=== PATIENT | female | born 1985 | race Two or more races ===

== ENCOUNTER 2017-04-20 13:25 | Inpatient (IN) | payer MEDICAID ==
[~2017-04-20] VITALS: Ht 157.5 cm; Wt 82.6 kg
[~2017-04-20 13:25] MED LIST: PREN-96 PO
[2017-04-20] MEDS ORDERED: BETAMETHASONE ACET (6MG/ML) 5ML VIAL ONE (13:35)
[2017-04-20] MEDS ORDERED: IRON150T2 PO (13:50)
[2017-04-20] MEDS ORDERED: NALBUPHINE HCL 10 MG/1ml INJECTION IV PRN (14:30)
[2017-04-20] MEDS ORDERED: LACTATED RINGER'S 1,000 ML IV SCH (14:30)
[2017-04-20] MEDS ORDERED: LIDOCAINE 1% HCL (LOCAL ANESTH.) INJ 20ML MDV XX ONE (14:30)
[2017-04-20] MEDS ORDERED: PROMETHAZINE HCL 25 MG/ML 1ML IV PRN (14:30)
[2017-04-20 15:21] LABS: Basophils # (auto) 0 uL; Basophils % (auto) 0.1 % (0.0-2.0); CONDITION Y; Eosinophils # (auto) 0 uL; Eosinophils % (auto) 0.1 % (0.0-7.0); Hemoglobin 10.4 g/dL (12.2-16.2); Lymphocytes # (auto) 1.5 uL; Lymphocytes % (auto) 12.4 % (10.0-50.0); Mean Corpuscular Hemoglobin 28.1 pg (28.0-32.0); Mean Corpuscular Hgb Conc. 33.7 g/dL (32.0-36.0); Mean Corpuscular Volume 83.3 fL (80.0-100.0); Mean Platelet Volume 7.7 fL (7.4-10.4); Monocytes # (auto) 0.7 uL; Monocytes % (auto) 5.5 % (0.0-12.0); Neutrophils # (auto) 9.8 uL; Neutrophils % (auto) 81.9 % (37.0-80.0); Platelet Count (auto) 372 10^3/uL (140-450); Red Cell Distribution Width 15.4 % (11.6-16.0)
[2017-04-20 15:31] LABS: INR 0.91 (0.9-1.15); Prothrombin Time 9.9 sec (9.37-12.3)
[2017-04-20 15:38] LABS: Urine Bilirubin Negative (Negative); Urine Blood Negative /uL (Negative); Urine Glucose Normal (Normal); Urine Ketone Negative (Negative); Urine Nitrite Negative (Negative); Urine RBC 2 /hpf (0 - 4); Urine Squamous Epithelial Cell FEW /hpf (<5); Urine Urobilinogen Normal (Negative)
[2017-04-20 15:41] LABS: Albumin 2.7 g/dL (3.4-5.0); BUN/Creatinine Ratio 11.9; Calcium 8.5 mg/dL (8.5-10.1); Potassium 3.3 mmol/L (3.5-5.1)
[2017-04-20 15:43] LABS: Urine Color Straw (Yellow)
[2017-04-20 15:54] LABS: Uric Acid 4.6 mg/dL (2.6-6.0)
[2017-04-20 16:05] LABS: Bilirubin, Total 0.1 mg/dL (0.2-1.0); Total Protein 6.9 g/dL (6.4-8.2)
[2017-04-21] VITALS: BP 109/56
[2017-04-21] MEDS ORDERED: LACTATED RINGER'S 1,000 ML IV SCH (05:52)
[2017-04-21] MEDS ORDERED: LACT. RINGERS/OXYTOCIN 20UNITS 1,000 ML IV SCH (05:52)
[2017-04-21] MEDS ORDERED: PHISODERM TOP SOLN 240ML BTL TOP PRN (06:00)
[2017-04-21] MEDS ORDERED: LIDOCAINE 2%HCL (LOCAL ANESTH.) INJ 20ML MDV IJ ONE (06:00)
[2017-04-21] MEDS ORDERED: DERMOPLAST 60ML BOTTLE TOP PRN (06:00)
[2017-04-21] MEDS ORDERED: WITCH HAZEL-GLYCERIN PAD TOP PRN (06:00)
[2017-04-21] MEDS ORDERED: METHYLERGONOVINE MALEATE 0.2 MG/ML AMP IM PRN (06:00)
[2017-04-21] MEDS: DOCUSATE CALCIUM 240 MG CAP PO SCH (18:44)
[2017-04-21] MEDS ORDERED: IBUPROFEN 600 MG TAB PO PRN (18:45)
[2017-04-22 04:00] VITALS: BP 94/53
[2017-04-22 06:30] VITALS: BP 109/61
[2017-04-22] MEDS: DOCUSATE CALCIUM 240 MG CAP PO SCH (10:00)
[2017-04-22 11:45] VITALS: BP 106/66
[2017-04-22 16:00] VITALS: BP 116/75
[2017-04-22 18:45] VITALS: BP 138/87
[2017-04-22 23:30] VITALS: BP 111/68
[2017-04-23 03:30] VITALS: BP 114/59
[2017-04-23 07:30] VITALS: BP 114/75
[2017-04-23] MEDS: DOCUSATE CALCIUM 240 MG CAP PO SCH (10:13)
[2017-04-23 12:30] VITALS: BP 109/67
== END 2017-04-23 16:05 | disposition home or self-care (01) | DRG 560 ==
LOC: OBSVTOIN 13:25 → LDRP 13:25
PROVIDERS: ADMIT Specialist; ATTEND Specialist
PROC: 10E0XZZ Delivery of Products of Conception, External Approach (ICD-10-PCS; principal; 2017-04-21)
DX: O41.00X0 Oligohydramnios, unspecified trimester, not applicable or unspecified (principal); O36.5930 Maternal care for other known or suspected poor fetal growth, third trimester, not applicable or unspecified; Z37.0 Single live birth; Z3A.37 37 weeks gestation of pregnancy
CPT/HCPCS: 36415; 59025; 59409; 76815; 76818; 76856; 80053; 81001; 81002; 84550; 85025; 85610; 85730; 86850; 86900; 86901; 96361; 96366; 96372; 96375; G0378; J2590

== ENCOUNTER 2021-01-23 14:42 | Emergency (ER) | payer SELFPAY ==
[~2021-01-23] VITALS: Ht 157.5 cm; Wt 74.8 kg
[~2021-01-23 14:42] MED LIST changes: +IRON150T2 PO
[2021-01-23] MEDS ORDERED: IBUPROFEN 800 MG TAB PO ONE (17:45)
[2021-01-23] MEDS ORDERED: METHOCARBAMOL 500 MG TAB PO ONE (17:45)
[2021-01-23 19:50] VITALS: BP 120/72
== END 2021-01-23 19:58 | disposition home or self-care (01) ==
LOC: ER 14:42
DX: S16.1XXA Strain of muscle, fascia and tendon at neck level, initial encounter (principal); S80.11XA Contusion of right lower leg, initial encounter; M54.6 Pain in thoracic spine; V49.9XXA Car occupant (driver) (passenger) injured in unspecified traffic accident, initial encounter; Y93.89 Activity, other specified; Y92.89 Other specified places as the place of occurrence of the external cause; Y99.8 Other external cause status